=== PATIENT | female | born 1995 | race Two or more races ===

== ENCOUNTER 2016-12-10 23:58 | Inpatient (IN) | payer OTHER, MEDICAID ==
[2016-12-11 00:38] LABS: ADD DIFF? YES; ADD MORPH? NO; ADD SCAN? NO; ATYPICAL LYMPHOCYTE FLAG 20 (0-99); FRAGMENT RBC FLAG 0 (0-99); HEMOGLOBIN 12.7 g/dL (12.6-16.3); LEFT SHIFT FLG 20 (0-99); LIPEMIA HEMOLYSIS FLAG 80 (0-99); MEAN CELL HEMOGLOBIN 28.9 pg (27.9-34.1); MEAN CELL HEMOGLOBIN CONCENTR. 32.6 g/dL (32.4-36.7); MEAN CELL VOLUME 88.8 fL (81.5-99.8); MEAN PLATELET VOLUME 10.2 fL (8.7-11.7); PLATELET CLUMPS FLAG 0 (0-99); PLATELET COUNT 288 10^3/uL (150-400); RED BLOOD CELL COUNT 4.39 10^6/uL (4.18-5.33); RED CELL DISTRIBUTION WIDTH 11.9 % (11.5-15.2)
[2016-12-11 00:39] LABS: ANION GAP 14 mEq/L (8-16); CALCIUM 9.8 mg/dL (8.5-10.4); CARBON DIOXIDE 19 mEq/l (22-31); CHLORIDE 103 mEq/L (97-110); CREATININE 0.7 mg/dL (0.6-1.0); GLOMERULAR FILTRATION RATE > 60; GLUCOSE 125 mg/dL (70-100); POTASSIUM 3.1 mEq/L (3.5-5.2); SODIUM 136 mEq/L (134-144)
[2016-12-11] MEDS ORDERED: ONDANSETRON 4 MG/2 ML VIAL IVP ONE (00:48)
[2016-12-11] MEDS ORDERED: TDAP ADULT 0.5 ML INJ (BOOSTRIX) IM ONE (01:11)
[2016-12-11] MEDS ORDERED: ceFAZolin 1 GM in NS 100 ML IV ONE (01:11)
[2016-12-11] MEDS ORDERED: CEFAZOLIN 1 GM/DEXTROSE/50 ML BAG IV ONE (01:11)
[2016-12-11 01:27] LABS: PLATELET ESTIMATE ADEQUATE (ADEQ)
[2016-12-11] MEDS ORDERED: IOPAMIDOL (ISOVUE-300) 100 ML BTL ONE ×2 (01:36→06:08)
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
[2016-12-11] MEDS ORDERED: NS 1,000 ML IV ONE (01:39)
[2016-12-11] MEDS ORDERED: fentaNYL 100 MCG/2 ML INJ ONE ×3 (02:17→09:32)
[2016-12-11] MEDS ORDERED: fentaNYL 100 MCG/2 ML INJ IVP ONE (02:21)
[2016-12-11] MEDS ORDERED: NALOXONE HCL 0.4 MG/ML INJ IVP PRN ×2 (02:22→17:04)
[2016-12-11] MEDS ORDERED: ONDANSETRON 4 MG/2 ML VIAL IVP PRN ×2 (02:22→17:04)
[2016-12-11] MEDS ORDERED: TRANEXAMIC ACID 1,000 MG/10 ML VIAL ONE (02:31)
[2016-12-11 02:32] LABS: ETHANOL SERUM < 10 mg/dL (0-10)
[2016-12-11] MEDS: FAMOTIDINE 20 MG/NACL 50 ML IV SCH ×3 (03:00→21:40)
[2016-12-11] MEDS ORDERED: KETAMINE 100 MG/10 ML SYR IVP ONE (03:19)
[2016-12-11 03:20] LABS: HEMOGLOBIN 8.8 g/dL (12.6-16.3)
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
[2016-12-11 04:30] LABS: HEMATOCRIT 27.4 % (38.0-47.0)
--- NOTE | 2016-12-11 05:49 | POSTOPPROG ---
Post Op Note Date of Operation: 12/11/16 Surgeon: Jim Victoria Anesthesia: IV Sedation Pre-op Diagnosis: Splenic laceration Post-op Diagnosis: same Indication: hypotension, intraperitoneal hemorrhage Procedure: Splenic arterial embolization Findings: Embolization of mid splenic artery. No active extravasation at this time. Inf/Abcess present in the surg proc area at time of surgery?: No EBL: 50-100 Complications: 0
--- NOTE | 2016-12-11 07:13 | GHP ---
[f rep st] HISTORY AND PHYSICAL DATE OF ADMISSION: 12/11/2016 ADDENDUM (CORRECTIONS): Dictated this morning and I have the draft on the computer but I do not know how to edit it, so starting off it says draft transfer summary. It is not a transfer summary, it is a history and physical. Then there is a blank in the first paragraph where it says age, 31. Then if we can move down to imaging, I would like to make some corrections. In the 2nd and 3rd lines it says, CT chest shows a very tiny left apical pneumothorax. Then let us change the rest of the te xt to this paragraph: Rib fractures on the left 1 through 11 as well as nondisplaced manubrial fract ure, as well as questionable T3 or T4 endplate fractures are noted. On the 4th line in that paragrap h where it says CT abdomen, I would like to add to that sentence to make it say: CT abdomen shows pr obable grade 3 splenic injury, and the radiologist is concerned about some subtle active extravasatio n. Then take out the line that says, no obvious active extravasation please. On the last line of th at paragraph where it says a left pelvic fracture is noted, please change that to: A left pelvic fra cture is noted, left sacral fracture as well, extending into the acetabulum. The very last paragraph under plan, the patient told me her age was, and there is a blank, 21. And roseanna salazar at the very end of this on page 2 under the plan, put addendum: The patient had a transient bloo d pressure of 77 while her scalp was being repaired, and it was felt appropriate to transfuse 2 units of blood, 2 units fresh frozen plasma, and send her to IR for study and embolization of the splenic injury. /[id number]/MODL
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
[2016-12-11] MEDS: LR 1,000 ML IV SCH ×2 (08:04→18:10)
[2016-12-11] MEDS ORDERED: HYDROmorphONE/DILAUDID 1 MG/ML INJ IVP PRN (08:08)
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
[2016-12-11 08:50] LABS: ANION GAP 7 mEq/L (8-16); CALCIUM 7.7 mg/dL (8.5-10.4); CARBON DIOXIDE 21 mEq/l (22-31); CHLORIDE 109 mEq/L (97-110); CREATININE 0.6 mg/dL (0.6-1.0); GLOMERULAR FILTRATION RATE > 60; GLUCOSE 111 mg/dL (70-100); SODIUM 137 mEq/L (134-144)
[2016-12-11] MEDS ORDERED: MIDAZOLAM 2 MG/2 ML VIAL ONE (09:32)
[2016-12-11] MEDS ORDERED: FLUMAZENIL 0.5 MG/5 ML MDV IVP ONE (09:33)
[2016-12-11] MEDS ORDERED: LORazepam 2 MG/ML INJ ONE (09:36)
[2016-12-11 09:37] LABS: INR 1.19 (0.83-1.16); PROTIME(PATIENT) 15.1 SEC (12.0-15.0)
[2016-12-11 09:44] LABS: MEAN CELL HEMOGLOBIN 29.3 pg (27.9-34.1); MEAN CELL HEMOGLOBIN CONCENTR. 32.1 g/dL (32.4-36.7); MEAN CELL VOLUME 91.2 fL (81.5-99.8); RED BLOOD CELL COUNT 3.07 10^6/uL (4.18-5.33)
[2016-12-11] MEDS ORDERED: LORazepam 2 MG/ML INJ IVP ONE (09:53)
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
--- NOTE | 2016-12-11 16:51 | POSTANESTH ---
Post Anesthetic Evaluation Cardiovascular Status: Normal, Stable, Similar to Pre-Op Cond, Tx Hyper/Hypo- tension (pt w/ mild hypotension associated with sympathectomy. Recommend to primary team to treat hypotension with IVF and low dose phenyephrine gtt.) Respiratory Status: Normal, Stable, Similar to Pre-op Cond. Level of Consciousness/Mental Status: Can Participate in Eval, Mildly Sleepy, Arousable Pain Control: Inadeq, Add Tx Required Nausea/Vomiting Control: Adequate, Prn Tx Ordered Complications Possibly Related to Anesthesia: None Noted Notes: S/P thoracic epidural T5-6. Dosed with 5 cc bupi 0.25%, narrow band T4-T8. Will start infusion Bupi 0.1% w dilaudid 10 mcg/ml at 6 cc/hr with patient controlled bolus of 3 cc q 15 min.
[2016-12-11] MEDS ORDERED: NARCOTIC DRIP BAG-TOTAL ALL TYPES EP PRN (17:04)
[2016-12-11] MEDS ORDERED: diphenhydrAMINE 25 MG CAP PO PRN (17:04)
[2016-12-11] MEDS ORDERED: NS BOLUS 500 ML (Wide open) IV ONE (17:30)
[2016-12-11 17:38] LABS: HEMATOCRIT 27.9 % (38.0-47.0); HEMOGLOBIN 9.3 g/dL (12.6-16.3)
[2016-12-11] MEDS: HYDROmorph 10MCG/ML&BUP 0.1% in 100ML NS EP SCH (19:00)
[2016-12-12] MEDS: HYDROmorph 10MCG/ML&BUP 0.1% in 100ML NS EP SCH (02:10)
[2016-12-12 04:40] LABS: HEMATOCRIT 27.3 % (38.0-47.0); HEMOGLOBIN 9.1 g/dL (12.6-16.3); MEAN CELL HEMOGLOBIN 29.9 pg (27.9-34.1); MEAN CELL HEMOGLOBIN CONCENTR. 33.3 g/dL (32.4-36.7); MEAN CELL VOLUME 89.8 fL (81.5-99.8); RED BLOOD CELL COUNT 3.04 10^6/uL (4.18-5.33); RED CELL DISTRIBUTION WIDTH 13.9 % (11.5-15.2)
[2016-12-12 04:51] LABS: ANION GAP 7 mEq/L (8-16); CALCIUM 8.2 mg/dL (8.5-10.4); CARBON DIOXIDE 25 mEq/l (22-31); CHLORIDE 105 mEq/L (97-110); CREATININE 0.5 mg/dL (0.6-1.0); GLOMERULAR FILTRATION RATE > 60; GLUCOSE 83 mg/dL (70-100); POTASSIUM 3.3 mEq/L (3.5-5.2); SODIUM 137 mEq/L (134-144)
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
[2016-12-12] MEDS ORDERED: PROTOCOL POTASSIUM 1 DOSE MISC PRN ×3 (07:31→14:43)
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
[2016-12-12] MEDS: POTASSIUM Cl (KCl) 100 ML IV SCH ×3 (08:22→09:55)
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
[2016-12-12] MEDS: DC NARCS MISC SCH (10:39)
[2016-12-12] MEDS: FAMOTIDINE 20 MG/NACL 50 ML IV SCH ×2 (10:39→20:06)
[2016-12-12] MEDS: REGARDING ANTICOAG MISC SCH (10:39)
[2016-12-12] MEDS ORDERED: POTASSIUM CL 20 MEQ/15 ML UDCUP PO PRN (14:42)
--- NOTE | 2016-12-12 14:50 | POSTANESTH ---
Post Anesthetic Evaluation Cardiovascular Status: Normal, Stable, Similar to Pre-Op Cond Respiratory Status: Normal, Stable, Similar to Pre-op Cond. Level of Consciousness/Mental Status: Can Participate in Eval, Mildly Sleepy, Arousable Pain Control: Adequate, Prn Tx Ordered Nausea/Vomiting Control: Adequate, Prn Tx Ordered Complications Possibly Related to Anesthesia: None Noted Notes: Day #2 s/p thoracic PCEA T5-6. Pt reports good pain control. She has a T3-L1 dermatomal level. No n/v. describes pruritis particularly on her back, relieved with benadryl overnight. Back site is c/d/i, no erythema/edema/ exudate catheter at 10 cm at the skin. Plan: :continue PCEA. Will change to a lower narcotic infusion, bupi 0.1% with fentanyl 2mcg/ml at a rate of 6ml/hr bolus 3 ml, lockout 15 minutes. :Ambulate with assistance as tolerated. :No need to maintain paniagua catheter from our standpoint. :Will add valium 2 mg q6 PO for muscle spasm. :D/W primary team.
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
[2016-12-12] MEDS ORDERED: ONDANSETRON 4 MG/2 ML VIAL IVP PRN (15:18)
[2016-12-12] MEDS ORDERED: NALOXONE HCL 0.4 MG/ML INJ IVP PRN (15:18)
[2016-12-12] MEDS: DIAZEPAM 2 MG TAB PO PRN ×2 (16:00→22:48)
[2016-12-12] MEDS: fentaNYL 2MCG/ML/BUP 0.1% RTU 100 ML EP SCH (16:04)
[2016-12-12] MEDS: LR 1,000 ML IV SCH (20:08)
[2016-12-13] MEDS: fentaNYL 2MCG/ML/BUP 0.1% RTU 100 ML EP SCH ×2 (02:39→23:27)
[2016-12-13] MEDS: DIAZEPAM 2 MG TAB PO PRN ×3 (04:36→19:38)
[2016-12-13 04:44] LABS: HEMATOCRIT 26.8 % (38.0-47.0); HEMOGLOBIN 8.9 g/dL (12.6-16.3); MEAN CELL HEMOGLOBIN 30.2 pg (27.9-34.1); MEAN CELL HEMOGLOBIN CONCENTR. 33.2 g/dL (32.4-36.7); MEAN CELL VOLUME 90.8 fL (81.5-99.8); RED BLOOD CELL COUNT 2.95 10^6/uL (4.18-5.33); RED CELL DISTRIBUTION WIDTH 13.5 % (11.5-15.2)
[2016-12-13 05:07] LABS: ANION GAP 6 mEq/L (8-16); CALCIUM 8.8 mg/dL (8.5-10.4); CARBON DIOXIDE 27 mEq/l (22-31); CHLORIDE 102 mEq/L (97-110); CREATININE 0.6 mg/dL (0.6-1.0); GLOMERULAR FILTRATION RATE > 60; GLUCOSE 87 mg/dL (70-100); POTASSIUM 3.9 mEq/L (3.5-5.2); SODIUM 135 mEq/L (134-144)
[2016-12-13] MEDS ORDERED: POTASSIUM Cl (KCl) 100 ML IV SCH (08:35)
[2016-12-13] MEDS ORDERED: PROTOCOL POTASSIUM 1 DOSE MISC PRN ×2 (08:41→17:24)
[2016-12-13] MEDS ORDERED: POTASSIUM CL 10 MEQ TAB PO ONE ×2 (09:00→19:17)
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
[2016-12-13] MEDS: FAMOTIDINE 20 MG TAB PO SCH ×2 (09:34→20:01)
[2016-12-13] MEDS: DC NARCS MISC SCH (10:12)
[2016-12-13] MEDS: REGARDING ANTICOAG MISC SCH (10:13)
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
[2016-12-13 12:12] LABS: POTASSIUM 3.9 mEq/L (3.5-5.2)
[2016-12-13] MEDS ORDERED: BACITRACIN ZINC 14.2 GM OINTTUBE TP ONE (13:03)
[2016-12-13] MEDS ORDERED: EPINEPHrine 30 MG/30 ML MDV ONE (13:04)
[2016-12-13] MEDS ORDERED: LIDOCAINE 1% 300 MG/30 ML SDV ONE (13:04)
[2016-12-13] MEDS ORDERED: BUPIVACAINE/EPI 0.5% 30 ML SDV ONE (13:04)
[2016-12-13] MEDS ORDERED: MIDAZOLAM 2 MG/2 ML VIAL ONE (14:09)
[2016-12-13] MEDS ORDERED: fentaNYL 100 MCG/2 ML INJ ONE (14:09)
--- NOTE | 2016-12-13 14:13 | PDANEPAE ---
ANE Past Medical History - Cardiovascular History Hx Hypertension: No - Pulmonary History Hx COPD: No Hx Oxygen in Use at Home: No Hx Sleep Apnea: No - Endocrine History Hx Diabetes: No ANE Review of Systems Review of Systems: ANE Patient History - Allergies Allergies/Adverse Reactions: No Known Allergies Allergy (Unverified 12/11/16 00:36) - Home Medications Home Medications: Acetaminophen [Tylenol 325mg (*)] 325 mg PO DAILY PRN 12/11/16 [Last Taken Unknown] Ibuprofen [Motrin (*)] 200 mg PO DAILY PRN 12/11/16 [Last Taken Unknown] - Smoking Hx Smoking Status: Current some day smoker ANE Labs/Vital Signs - Labs Result Diagrams: 12/13/16 04:35 12/13/16 11:50 - Vital Signs Blood Pressure: 104/54 Heart Rate: 59 Respiratory Rate: 14 O2 Sat (%): 100 Height: 160.02 cm Weight: 58.967 kg ANE Physical Exam - Airway Neck exam: C-collar in place Mallampati Score: Unable to assesss - Pulmonary Pulmonary: no respiratory distress - Cardiovascular Cardiovascular: regular rate and rhythym - ASA Status ASA Status: III ANE Anesthesia Plan Total IV Anesthesia: Yes
[2016-12-13] MEDS ORDERED: PROPOFOL 200 MG/20 ML VIAL ONE (14:19)
--- NOTE | 2016-12-13 15:02 | POSTANESTH ---
Post Anesthetic Evaluation Cardiovascular Status: Normal, Stable Respiratory Status: Normal, Stable Level of Consciousness/Mental Status: Can Participate in Eval Pain Control: Adequate, Prn Tx Ordered Nausea/Vomiting Control: Adequate, Prn Tx Ordered Complications Possibly Related to Anesthesia: None Noted
[2016-12-13] MEDS: POTASSIUM Cl (KCl) 100 ML IV SCH ×2 (15:43→17:29)
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
--- NOTE | 2016-12-13 16:41 | ASMTCMCOM ---
CM Note CM Note Notes: Pt to OR today to clean facial wound. Inpt rehab met with pt and her today and will follow up on Friday. CM will continue to follow. Date Signed: 12/13/2016 04:40 PM Electronically Signed By:JOE Bowen
[2016-12-13] MEDS: BACITRACIN OINTMENT 1 PACKET TP SCH ×2 (18:08→21:03)
[2016-12-13 18:15] LABS: POTASSIUM 3.9 mEq/L (3.5-5.2)
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
[2016-12-13] MEDS: LR 1,000 ML IV SCH (21:03)
[2016-12-14] MEDS: LR 1,000 ML IV SCH (04:56)
[2016-12-14] MEDS: DIAZEPAM 2 MG TAB PO PRN ×3 (05:01→17:31)
[2016-12-14] MEDS: BACITRACIN OINTMENT 1 PACKET TP SCH ×5 (05:01→23:54)
[2016-12-14 05:19] LABS: HEMATOCRIT 26.9 % (38.0-47.0); HEMOGLOBIN 8.8 g/dL (12.6-16.3); MEAN CELL HEMOGLOBIN 29.1 pg (27.9-34.1); MEAN CELL HEMOGLOBIN CONCENTR. 32.7 g/dL (32.4-36.7); MEAN CELL VOLUME 89.1 fL (81.5-99.8); RED BLOOD CELL COUNT 3.02 10^6/uL (4.18-5.33)
[2016-12-14 05:57] LABS: ANION GAP 10 mEq/L (8-16); CALCIUM 8.7 mg/dL (8.5-10.4); CARBON DIOXIDE 24 mEq/l (22-31); CHLORIDE 103 mEq/L (97-110); CREATININE 0.4 mg/dL (0.6-1.0); GLOMERULAR FILTRATION RATE > 60; GLUCOSE 88 mg/dL (70-100); POTASSIUM 3.9 mEq/L (3.5-5.2); SODIUM 137 mEq/L (134-144)
[2016-12-14] MEDS ORDERED: PROTOCOL POTASSIUM 1 DOSE MISC PRN (08:50)
[2016-12-14] MEDS ORDERED: POTASSIUM CL 10 MEQ TAB PO ONE (08:51)
[2016-12-14] MEDS: FAMOTIDINE 20 MG TAB PO SCH ×2 (09:22→23:54)
[2016-12-14] MEDS: fentaNYL 2MCG/ML/BUP 0.1% RTU 100 ML EP SCH (09:22)
[2016-12-14] MEDS: REGARDING ANTICOAG MISC SCH (09:55)
[2016-12-14] MEDS: DC NARCS MISC SCH (09:55)
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
[2016-12-14 18:42] LABS: POTASSIUM 3.8 mEq/L (3.5-5.2)
[2016-12-15] MEDS: DIAZEPAM 2 MG TAB PO PRN (01:45)
[2016-12-15] MEDS: fentaNYL 2MCG/ML/BUP 0.1% RTU 100 ML EP SCH ×2 (03:25→15:01)
[2016-12-15 05:10] LABS: HEMATOCRIT 29.7 % (38.0-47.0); HEMOGLOBIN 9.9 g/dL (12.6-16.3); MEAN CELL HEMOGLOBIN 29.6 pg (27.9-34.1); MEAN CELL HEMOGLOBIN CONCENTR. 33.3 g/dL (32.4-36.7); MEAN CELL VOLUME 88.7 fL (81.5-99.8); RED BLOOD CELL COUNT 3.35 10^6/uL (4.18-5.33); RED CELL DISTRIBUTION WIDTH 12.9 % (11.5-15.2)
[2016-12-15 05:17] LABS: POTASSIUM 3.9 mEq/L (3.5-5.2)
[2016-12-15] MEDS ORDERED: HEPARIN 20,000 UNIT/ML VIAL SC SCH (06:30)
[2016-12-15] MEDS: BACITRACIN OINTMENT 1 PACKET TP SCH ×5 (06:32→20:30)
[2016-12-15] MEDS ORDERED: POTASSIUM CL 10 MEQ TAB PO ONE (09:13)
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
[2016-12-15] MEDS: FAMOTIDINE 20 MG TAB PO SCH ×2 (09:21→20:30)
[2016-12-15] MEDS: ACETAMINOPHEN 325 MG TAB PO PRN ×2 (09:22→18:29)
[2016-12-15] MEDS: HEPARIN 5,000 UNIT/0.5 ML SYR SC SCH ×4 (09:26→23:46)
[2016-12-15] MEDS: DC NARCS MISC SCH (10:28)
[2016-12-15] MEDS: DIAZEPAM 5 MG TAB PO PRN ×2 (12:14→18:28)
--- NOTE | 2016-12-15 14:53 | ASMTCMCOM ---
CM Note CM Note Notes: Therapies recommending HC, patient and seem to think HC would be a good idea. Patient has Medicaid ins and lives in [facility]. Date Signed: 12/15/2016 02:53 PM Electronically Signed By:Milagros Boyd LCSW
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
[2016-12-15 18:21] LABS: POTASSIUM 4.3 mEq/L (3.5-5.2)
[2016-12-15] MEDS ORDERED: ZOLPIDEM TARTRATE 5 MG TAB PO ONE (23:26)
[2016-12-16] MEDS: ACETAMINOPHEN 325 MG TAB PO PRN (02:56)
[2016-12-16] MEDS: DIAZEPAM 5 MG TAB PO PRN ×2 (02:57→15:18)
[2016-12-16 04:25] LABS: HEMATOCRIT 30.6 % (38.0-47.0); HEMOGLOBIN 10.2 g/dL (12.6-16.3); MEAN CELL HEMOGLOBIN 29.6 pg (27.9-34.1); MEAN CELL HEMOGLOBIN CONCENTR. 33.3 g/dL (32.4-36.7); MEAN CELL VOLUME 88.7 fL (81.5-99.8); RED BLOOD CELL COUNT 3.45 10^6/uL (4.18-5.33); RED CELL DISTRIBUTION WIDTH 12.9 % (11.5-15.2)
[2016-12-16] MEDS: fentaNYL 2MCG/ML/BUP 0.1% RTU 100 ML EP SCH ×2 (04:26→15:40)
[2016-12-16 04:34] LABS: POTASSIUM 3.9 mEq/L (3.5-5.2)
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
[2016-12-16] MEDS: BACITRACIN OINTMENT 1 PACKET TP SCH ×5 (06:15→21:22)
[2016-12-16] MEDS ORDERED: POTASSIUM CL 10 MEQ TAB PO ONE (08:03)
[2016-12-16] MEDS ORDERED: BUPIVACAINE/EPI 0.5% 30 ML SDV ONE (09:49)
[2016-12-16] MEDS ORDERED: LIDOCAINE 1% 300 MG/30 ML SDV ONE (09:49)
[2016-12-16] MEDS ORDERED: BACITRACIN 50,000 UNITS/10 ML SYR IRR ONE (09:50)
[2016-12-16] MEDS: HEPARIN 5,000 UNIT/0.5 ML SYR SC SCH ×2 (09:51→21:22)
[2016-12-16] MEDS: FAMOTIDINE 20 MG TAB PO SCH ×2 (09:52→21:22)
[2016-12-16] MEDS ORDERED: BACITRACIN ZINC 14.2 GM OINTTUBE TP ONE (09:52)
[2016-12-16] MEDS ORDERED: POLYMYXIN B SULFATE 500,000 UNIT/10 ML SYR IRR ONE (09:52)
[2016-12-16] MEDS: DC NARCS MISC SCH (10:00)
[2016-12-16] MEDS ORDERED: BUPIVACAINE 0.5% 30 ML SDV ONE (12:12)
[2016-12-16] MEDS ORDERED: LR 1,000 ML IV ONE ×2 (12:21→13:46)
[2016-12-16] MEDS ORDERED: fentaNYL 100 MCG/2 ML INJ ONE ×3 (12:33→13:31)
[2016-12-16] MEDS ORDERED: PROPOFOL 200 MG/20 ML VIAL ONE (12:35)
[2016-12-16] MEDS ORDERED: ROPIVACAINE HCL 150 MG/30 ML INJ ONE (13:02)
--- NOTE | 2016-12-16 13:04 | POSTOPPROG ---
Post Op Note Date of Operation: 12/16/16 Surgeon: Kendall Jenkins Haunted History Tour Guide: none Pre-op Diagnosis: left pleural effusion Post-op Diagnosis: same Procedure: Left closed tube thoracostomy tube insertion Findings: serous fluid Inf/Abcess present in the surg proc area at time of surgery?: No Depth: Organ Space EBL: Minimal Specimen(s): none
[2016-12-16] MEDS ORDERED: NALOXONE HCL 0.4 MG/ML INJ IVP PRN (13:19)
[2016-12-16] MEDS ORDERED: PROMETHAZINE HCL 25 MG/ML INJ IVP PRN (13:19)
[2016-12-16] MEDS ORDERED: LR 500 ML IV PRN (13:19)
[2016-12-16] MEDS: fentaNYL 100 MCG/2 ML INJ IVP PRN ×2 (13:33→14:03)
[2016-12-16] MEDS ORDERED: LORazepam 2 MG/ML INJ IVP ONE (16:15)
[2016-12-16 18:51] LABS: POTASSIUM 4.4 mEq/L (3.5-5.2)
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
[2016-12-17] MEDS: fentaNYL 2MCG/ML/BUP 0.1% RTU 100 ML EP SCH ×2 (01:40→10:37)
[2016-12-17] MEDS: DIAZEPAM 5 MG TAB PO PRN (04:34)
[2016-12-17] MEDS: BACITRACIN OINTMENT 1 PACKET TP SCH ×5 (06:17→22:07)
[2016-12-17] MEDS ORDERED: CEPACOL LOZENGE PO PRN (07:32)
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
[2016-12-17] MEDS: HEPARIN 5,000 UNIT/0.5 ML SYR SC SCH ×2 (10:21→22:07)
[2016-12-17] MEDS: ACETAMINOPHEN 325 MG TAB PO PRN ×2 (10:22→17:16)
[2016-12-17] MEDS: FAMOTIDINE 20 MG TAB PO SCH ×2 (10:22→22:07)
[2016-12-17] MEDS: DC NARCS MISC SCH (11:03)
[2016-12-17 11:09] LABS: HEMATOCRIT 32.3 % (38.0-47.0); HEMOGLOBIN 10.8 g/dL (12.6-16.3); MEAN CELL HEMOGLOBIN 29.6 pg (27.9-34.1); MEAN CELL HEMOGLOBIN CONCENTR. 33.4 g/dL (32.4-36.7); MEAN CELL VOLUME 88.5 fL (81.5-99.8); RED BLOOD CELL COUNT 3.65 10^6/uL (4.18-5.33); RED CELL DISTRIBUTION WIDTH 12.7 % (11.5-15.2)
[2016-12-17 11:33] LABS: POTASSIUM 4.1 mEq/L (3.5-5.2)
[2016-12-17] MEDS: LR 1,000 ML IV SCH ×2 (12:23→22:16)
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
[2016-12-17 18:51] LABS: POTASSIUM 4.3 mEq/L (3.5-5.2)
[2016-12-18 05:34] LABS: POTASSIUM 4.4 mEq/L (3.5-5.2)
[2016-12-18] MEDS ORDERED: oxyCODONE IR 5 MG TAB PO PRN ×2 (06:00)
[2016-12-18] MEDS: ACETAMINOPHEN 325 MG TAB PO PRN ×2 (07:18→21:09)
[2016-12-18] MEDS: BACITRACIN OINTMENT 1 PACKET TP SCH ×5 (07:18→21:29)
[2016-12-18] MEDS ORDERED: MAGNESIUM HYDROXIDE 30 ML UDCUP PO PRN (07:26)
[2016-12-18] MEDS ORDERED: LACTULOSE 20 GM/30 ML UDCUP PO PRN (07:26)
[2016-12-18] MEDS ORDERED: POLYETHYLENE GLYCOL 3350 17 GM PKT PO PRN (07:26)
[2016-12-18] MEDS ORDERED: HYDROmorphONE/DILAUDID 1 MG/ML INJ IVP PRN (07:26)
[2016-12-18] MEDS ORDERED: BISACODYL 10 MG SUPP PR PRN (07:26)
[2016-12-18] MEDS ORDERED: KETOROLAC 15 MG/1 ML SDV IVP ONE (07:37)
[2016-12-18] MEDS: SENNOSIDES/DOCUSATE SODIUM TAB PO SCH ×2 (08:12→21:08)
[2016-12-18] MEDS: morphINE SR 15 MG TAB PO SCH ×3 (08:12→21:10)
[2016-12-18] MEDS: oxyCODONE IR 5 MG TAB PO PRN ×5 (09:14→21:09)
[2016-12-18] MEDS: LIDOCAINE 5% 1 EA PATCH TD SCH (09:21)
[2016-12-18] MEDS: DC NARCS MISC SCH (10:42)
[2016-12-18] MEDS: DIAZEPAM 5 MG TAB PO PRN ×2 (12:19→21:10)
[2016-12-18] MEDS: FAMOTIDINE 20 MG TAB PO SCH ×2 (12:31→21:09)
--- NOTE | 2016-12-18 14:08 | POSTANESTH ---
Post Anesthetic Evaluation Cardiovascular Status: Normal, Stable, Similar to Pre-Op Cond Respiratory Status: Normal, Stable, Similar to Pre-op Cond. Level of Consciousness/Mental Status: Can Participate in Eval, Alert and Oriented Pain Control: Adequate, Prn Tx Ordered Nausea/Vomiting Control: Adequate, Prn Tx Ordered Complications Possibly Related to Anesthesia: None Noted Notes: Epidural removed, tip intact, atraumatic. Thank you for this interesting consult- don't hesitate to call with any further questions or concerns.
--- NOTE | 2016-12-18 14:27 | ASMTCMCOM ---
CM Note CM Note Notes: Updated Ashlyn Wells at [facility] inpat rehab pt [employer] insurance is effective 12/15/16, she will start the ins auth. Date Signed: 12/18/2016 02:27 PM Electronically Signed By:JOE Dobbins
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
[2016-12-18] MEDS ORDERED: NALOXONE HCL 0.4 MG/ML INJ IVP PRN (17:43)
[2016-12-18] MEDS ORDERED: morphINE PCA 30 MG/30 ML PCA IV PRN (17:43)
[2016-12-18] MEDS: LORazepam 2 MG/ML INJ IVP PRN ×2 (18:53→23:24)
[2016-12-18] MEDS: PATCH REMOVAL 1 EA PATCH TD SCH (21:29)
[2016-12-19] MEDS: oxyCODONE IR 5 MG TAB PO PRN ×5 (02:49→23:21)
[2016-12-19] MEDS: ACETAMINOPHEN 325 MG TAB PO PRN ×3 (02:49→17:54)
[2016-12-19] MEDS: DIAZEPAM 5 MG TAB PO PRN ×3 (02:49→21:46)
[2016-12-19] MEDS: LORazepam 2 MG/ML INJ IVP PRN (06:46)
[2016-12-19] MEDS: BACITRACIN OINTMENT 1 PACKET TP SCH ×5 (07:02→21:43)
[2016-12-19] MEDS: SENNOSIDES/DOCUSATE SODIUM TAB PO SCH ×2 (08:17→22:00)
[2016-12-19] MEDS: LIDOCAINE 5% 1 EA PATCH TD SCH (08:18)
[2016-12-19] MEDS: morphINE SR 15 MG TAB PO SCH ×2 (08:20→21:46)
[2016-12-19] MEDS: FAMOTIDINE 20 MG TAB PO SCH ×2 (08:20→21:46)
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
[2016-12-19] MEDS: PATCH REMOVAL 1 EA PATCH TD SCH (22:00)
[2016-12-20] MEDS: ACETAMINOPHEN 325 MG TAB PO PRN ×2 (02:52→12:53)
[2016-12-20] MEDS: oxyCODONE IR 5 MG TAB PO PRN ×6 (02:54→22:01)
[2016-12-20] MEDS: BACITRACIN OINTMENT 1 PACKET TP SCH ×5 (06:18→20:51)
[2016-12-20] MEDS: morphINE SR 15 MG TAB PO SCH ×2 (09:17→20:51)
[2016-12-20] MEDS: SENNOSIDES/DOCUSATE SODIUM TAB PO SCH ×2 (09:17→23:07)
[2016-12-20] MEDS: FAMOTIDINE 20 MG TAB PO SCH ×2 (09:17→20:50)
[2016-12-20] MEDS: LIDOCAINE 5% 1 EA PATCH TD SCH (09:18)
[2016-12-20] MEDS: ENOXAPARIN 40 MG/0.4 ML SYR SC SCH (10:58)
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
--- NOTE | 2016-12-20 16:39 | ASMTCMCOM ---
CM Note CM Note Notes: Pt still on GENERAL INTERNAL MEDICINE DOCTOR, RN Denice is slowly transitioning pt to oral pain meds. If pt medically stable and on oral pain meds she can d/c to [facility] inpatient rehab Friday. Late today [place] insurance authorized inpatient rehab. [facility] inpatient rehab needs orders faxed to [phone] and report is [phone]. Date Signed: 12/20/2016 04:38 PM Electronically Signed By:JOE Dobbins
[2016-12-20] MEDS: DIAZEPAM 5 MG TAB PO PRN (22:04)
[2016-12-20] MEDS: PATCH REMOVAL 1 EA PATCH TD SCH (22:08)
[2016-12-21] MEDS: oxyCODONE IR 5 MG TAB PO PRN ×7 (01:13→23:50)
[2016-12-21] MEDS: BACITRACIN OINTMENT 1 PACKET TP SCH ×5 (05:27→20:15)
[2016-12-21] MEDS: ENOXAPARIN 40 MG/0.4 ML SYR SC SCH (08:36)
[2016-12-21] MEDS: FAMOTIDINE 20 MG TAB PO SCH ×2 (08:37→20:10)
[2016-12-21] MEDS: LIDOCAINE 5% 1 EA PATCH TD SCH (08:37)
[2016-12-21] MEDS: SENNOSIDES/DOCUSATE SODIUM TAB PO SCH ×2 (08:38→20:10)
[2016-12-21] MEDS: morphINE SR 15 MG TAB PO SCH ×2 (08:38→20:10)
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
[2016-12-21] MEDS: IBUPROFEN 800 MG TAB PO SCH ×2 (13:49→21:59)
[2016-12-21] MEDS: DIAZEPAM 5 MG TAB PO PRN (22:00)
[2016-12-21] MEDS: PATCH REMOVAL 1 EA PATCH TD SCH (22:02)
[2016-12-22] MEDS: LORazepam 2 MG/ML INJ IVP PRN (01:11)
--- NOTE | 2016-12-22 01:33 | TRAUMAPN ---
Assessment/Plan: Assessment: enlarging PTX after CT removed earlier today on serial CXR. patient also complained of increasing left side chest pain throughout eyad. a new percutaneous tube was placed without difficulty. CXR pending. no overnight events. pain controlled. avss. CT adynamic, 50cc old blood only. heart reg. lungs clear. abd nontender. slow progress. CT removed - repeat CXR. DC planning in progress. Plan: 12/21/16 09:55 Objective: Vital Signs Temp Pulse Resp BP Pulse Ox 36.5 C 71 16 107/65 91 L 12/21/16 23:56 12/21/16 23:56 12/21/16 23:56 12/21/16 23:56 12/21/16 23:56 Laboratory Results 12/17/16 11:03 12/18/16 04:24 12/20/16 12/21/16 12/22/16 05:59 05:59 05:59 Intake Total 2100 550 Output Total 50 Balance 2100 500 PT 15.1 SEC (12.0-15.0) H 12/11/16 09:20 INR 1.19 (0.83-1.16) H 12/11/16 09:20 - C-Spine Clearance Cervical Spine Cleared: No
--- NOTE | 2016-12-22 04:32 | GOP ---
[f rep st] OPERATIVE REPORT DATE OF OPERATION: 12/22/2016 SURGEON: Miguel Ayala MD ANESTHESIA: Local. PREOPERATIVE DIAGNOSIS: Enlarged left pneumothorax. POSTOPERATIVE DIAGNOSIS: Enlarged left pneumothorax. PROCEDURE PERFORMED: Left percutaneous tube thoracostomy. FINDINGS: DESCRIPTION OF PROCEDURE: The left chest was infiltrated with 1% lidocaine. A small skin judit was c reated. The Arrow percutaneous tube thoracostomy tray was placed in the thoracic cavity in the midcl avicular line, approximately 2nd intercostal space. Bubbling was noted within the syringe. The cath eter slid to its hub easily without resistance. There was good rhythmical respiration upon it connec ting to the Heimlich valve mechanism. The tube was secured to the chest with a silk suture. Sterile dressing was applied. A portable chest x-ray was pending upon completion. /[id number]/MODL
[2016-12-22] MEDS: oxyCODONE IR 5 MG TAB PO PRN ×6 (04:36→21:25)
[2016-12-22] MEDS: IBUPROFEN 800 MG TAB PO SCH ×3 (05:20→21:26)
[2016-12-22] MEDS: BACITRACIN OINTMENT 1 PACKET TP SCH ×5 (05:21→21:31)
[2016-12-22] MEDS: morphINE SR 15 MG TAB PO SCH ×2 (08:19→21:26)
[2016-12-22] MEDS: FAMOTIDINE 20 MG TAB PO SCH ×2 (08:19→21:25)
[2016-12-22] MEDS: ENOXAPARIN 40 MG/0.4 ML SYR SC SCH (08:19)
[2016-12-22] MEDS: LIDOCAINE 5% 1 EA PATCH TD SCH (08:20)
[2016-12-22] MEDS: SENNOSIDES/DOCUSATE SODIUM TAB PO SCH ×2 (09:07→21:26)
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
[2016-12-22] MEDS: ACETAMINOPHEN 325 MG TAB PO PRN (21:25)
[2016-12-22] MEDS: DIAZEPAM 5 MG TAB PO PRN (21:26)
[2016-12-23] MEDS: PATCH REMOVAL 1 EA PATCH TD SCH ×2 (00:10→22:54)
[2016-12-23] MEDS: oxyCODONE IR 5 MG TAB PO PRN ×4 (00:24→22:53)
[2016-12-23] MEDS: IBUPROFEN 800 MG TAB PO SCH ×3 (05:11→22:52)
[2016-12-23] MEDS: BACITRACIN OINTMENT 1 PACKET TP SCH ×5 (05:14→22:55)
[2016-12-23] MEDS: ACETAMINOPHEN 325 MG TAB PO PRN ×3 (05:14→23:48)
[2016-12-23 08:28] LABS: % IMMATURE GRANULYOCYTES 1.1 % (0.0-1.1); ABSOLUTE IMMATURE GRANULOCYTES 0.07 10^3/uL (0.00-0.10); ADD DIFF? NO; ADD MORPH? NO; ADD SCAN? NO; ATYPICAL LYMPHOCYTE FLAG 40 (0-99); FRAGMENT RBC FLAG 0 (0-99); HEMATOCRIT 28.8 % (38.0-47.0); HEMOGLOBIN 9.1 g/dL (12.6-16.3); LEFT SHIFT FLG 10 (0-99); LIPEMIA HEMOLYSIS FLAG 80 (0-99); MEAN CELL HEMOGLOBIN 28.6 pg (27.9-34.1); MEAN CELL HEMOGLOBIN CONCENTR. 31.6 g/dL (32.4-36.7); MEAN CELL VOLUME 90.6 fL (81.5-99.8); MEAN PLATELET VOLUME 9.2 fL (8.7-11.7); PLATELET CLUMPS FLAG 10 (0-99); PLATELET COUNT 475 10^3/uL (150-400); RED BLOOD CELL COUNT 3.18 10^6/uL (4.18-5.33); RED CELL DISTRIBUTION WIDTH 13.1 % (11.5-15.2)
[2016-12-23 08:43] LABS: ALANINE AMINOTRANSFERASE 45 IU/L (9-52); ALBUMIN 2.9 g/dL (3.5-5.0); ALKALINE PHOSPHATASE 97 IU/L (38-126); AMYLASE 46 IU/L (30-110); ANION GAP 7 mEq/L (8-16); ASPARTATE AMINOTRANSFERASE 26 IU/L (14-46); BILIRUBIN,TOTAL 0.4 mg/dL (0.1-1.4); BILIRUBIN-CONJUGATED 0.2 mg/dL (0.0-0.5); BILIRUBIN-UNCONJUGATED 0.2 mg/dL (0.0-1.1); CALCIUM 9.4 mg/dL (8.5-10.4); CARBON DIOXIDE 27 mEq/l (22-31); CHLORIDE 104 mEq/L (97-110); CREATININE 0.7 mg/dL (0.6-1.0); GLOMERULAR FILTRATION RATE > 60; GLUCOSE 93 mg/dL (70-100); POTASSIUM 4.3 mEq/L (3.5-5.2); SODIUM 138 mEq/L (134-144); TOTAL PROTEIN 5.9 g/dL (6.3-8.2)
[2016-12-23] MEDS: ENOXAPARIN 40 MG/0.4 ML SYR SC SCH (09:37)
[2016-12-23] MEDS: SENNOSIDES/DOCUSATE SODIUM TAB PO SCH ×2 (09:37→22:55)
[2016-12-23] MEDS: LIDOCAINE 5% 1 EA PATCH TD SCH (09:38)
[2016-12-23] MEDS: morphINE SR 15 MG TAB PO SCH ×2 (09:39→22:53)
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
[2016-12-23] MEDS: FAMOTIDINE 20 MG TAB PO SCH ×2 (13:52→22:52)
--- NOTE | 2016-12-23 15:11 | ASMTCMCOM ---
CM Note CM Note Notes: Spoke w pt at length about d/c plan of care, pt adamant today she wants to d/c home and not [facility] inpat rehab. Trauma doc updated, pt is not medically stable for a d/c home today. CM to follow. Date Signed: 12/23/2016 03:10 PM Electronically Signed By:JOE Dobbins
--- NOTE | 2016-12-23 16:29 | ASMTCMCOM ---
CM Note CM Note Notes: Pt changes her mind this afternoon and wants to go to [facility] intnt rehab, Ashlyn Wells notified and it is too late in day to take pt, they can take pt tomorrow but no later. Pt will decide if she wants friends/family to transport or wc van. Date Signed: 12/23/2016 04:28 PM Electronically Signed By:JOE Dobbins
[2016-12-23] MEDS: DIAZEPAM 5 MG TAB PO PRN (22:52)
[2016-12-24] MEDS: oxyCODONE IR 5 MG TAB PO PRN ×3 (02:01→17:26)
[2016-12-24] MEDS: IBUPROFEN 800 MG TAB PO SCH ×3 (05:32→22:21)
[2016-12-24] MEDS: ACETAMINOPHEN 325 MG TAB PO PRN (05:32)
[2016-12-24] MEDS: BACITRACIN OINTMENT 1 PACKET TP SCH ×5 (06:47→20:01)
[2016-12-24] MEDS: LIDOCAINE 5% 1 EA PATCH TD SCH (09:28)
[2016-12-24] MEDS: morphINE SR 15 MG TAB PO SCH ×2 (09:28→20:02)
[2016-12-24] MEDS: FAMOTIDINE 20 MG TAB PO SCH ×2 (09:28→20:02)
[2016-12-24] MEDS: ENOXAPARIN 40 MG/0.4 ML SYR SC SCH (09:28)
[2016-12-24] MEDS: SENNOSIDES/DOCUSATE SODIUM TAB PO SCH ×2 (09:28→20:02)
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
[2016-12-24] MEDS: DIAZEPAM 5 MG TAB PO PRN (22:21)
[2016-12-24] MEDS: PATCH REMOVAL 1 EA PATCH TD SCH (23:18)
[2016-12-25 00:02] VITALS: O2SAT 96
[2016-12-25] MEDS: IBUPROFEN 800 MG TAB PO SCH ×2 (05:40→14:36)
[2016-12-25] MEDS: BACITRACIN OINTMENT 1 PACKET TP SCH ×3 (06:03→13:59)
[2016-12-25 08:09] VITALS: BP 111/56; PULSE 49; RESP 20; TEMP 98.2
--- NOTE | 2016-12-25 08:13 | PDCONSULT ---
Super[employer] Note: Trauma Surgery/post injury day 15 Isaura is awake and alert/somewhat tearful this morning AFVSS Lungs: clear to ausc. CVS: RRR Abd: soft/non-tender ext: distal N/V intact CXR past 3 days reviewed/minimal apical left pneumo (2mm)vs. artifact CT removed Imp: stable for transfer to Rehab from Trauma Surgery viewpoint Rec: will check post CT removal CXR transfer to Rehab when bed available Orestes Vanegas MD, FACS
[2016-12-25] MEDS: FAMOTIDINE 20 MG TAB PO SCH (10:01)
[2016-12-25] MEDS: SENNOSIDES/DOCUSATE SODIUM TAB PO SCH (10:01)
[2016-12-25] MEDS: ENOXAPARIN 40 MG/0.4 ML SYR SC SCH (10:01)
[2016-12-25] MEDS: morphINE SR 15 MG TAB PO SCH (10:01)
[2016-12-25] MEDS: LIDOCAINE 5% 1 EA PATCH TD SCH (10:02)
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
--- NOTE | 2016-12-25 10:43 | PDDCSUM ---
Discharge Summary Discharge Summary: #[id number] SAMARIA Vanegas MD, FACS
--- NOTE | 2016-12-25 11:45 | ASMTCMCOM ---
CM Note CM Note Notes: Pt medically stable for d/c to [facility] inpatient rehabilitation. Pt requests wc transport as family is unavail, spoke w pt and husb about payment, they are aware and Mak Astorga will pickup at 14:30 and bill pt. Orders to be obtained in [employer]. SHARMILA Mejia to call report. Date Signed: 12/25/2016 11:45 AM Electronically Signed By:JOE Dobbins
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
[2016-12-25] MEDS: ACETAMINOPHEN 325 MG TAB PO PRN (14:37)
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
== END 2016-12-25 14:47 | DRG 958 ==
LOC: EDBD 23:58 → OBSVTOIN 12-11 01:57 → F2N 12-11 05:06 → F3N 12-14 15:37
PROVIDERS: ADMIT Surgery; ATTEND Surgery
PROC: 04L43DZ Occlusion of Splenic Artery with Intraluminal Device, Percutaneous Approach (ICD-10-PCS; principal; 2016-12-11)
PROC: 3E0S3NZ Introduction of Analgesics, Hypnotics, Sedatives into Epidural Space, Percutaneous Approach (ICD-10-PCS; 2016-12-11)
PROC: 30233K1 Transfusion of Nonautologous Frozen Plasma into Peripheral Vein, Percutaneous Approach (ICD-10-PCS; 2016-12-11)
PROC: 0HC1XZZ Extirpation of Matter from Face Skin, External Approach (ICD-10-PCS; 2016-12-11)
PROC: 30233N1 Transfusion of Nonautologous Red Blood Cells into Peripheral Vein, Percutaneous Approach (ICD-10-PCS; 2016-12-11)
PROC: 0HC1XZZ Extirpation of Matter from Face Skin, External Approach (ICD-10-PCS; 2016-12-13)
PROC: 0W9830Z Drainage of Chest Wall with Drainage Device, Percutaneous Approach (ICD-10-PCS; 2016-12-16)
PROC: 0W9830Z Drainage of Chest Wall with Drainage Device, Percutaneous Approach (ICD-10-PCS; 2016-12-22)
DX: S36.032A Major laceration of spleen, initial encounter (principal); S36.114A Minor laceration of liver, initial encounter; S32.120A Nondisplaced Zone II fracture of sacrum, initial encounter for closed fracture; S32.402A Unspecified fracture of left acetabulum, initial encounter for closed fracture; S22.42XA Multiple fractures of ribs, left side, initial encounter for closed fracture; S01.02XA Laceration with foreign body of scalp, initial encounter; S01.81XA Laceration without foreign body of other part of head, initial encounter; K56.7 Ileus, unspecified; D62 Acute posthemorrhagic anemia; S22.039A Unspecified fracture of third thoracic vertebra, initial encounter for closed fracture; S22.029A Unspecified fracture of second thoracic vertebra, initial encounter for closed fracture; I95.2 Hypotension due to drugs; T40.2X5A Adverse effect of other opioids, initial encounter; S06.6X9A Traumatic subarachnoid hemorrhage with loss of consciousness of unspecified duration, initial encounter; R40.2412 Glasgow coma scale score 13-15, at arrival to emergency department; F17.210 Nicotine dependence, cigarettes, uncomplicated; S27.0XXA Traumatic pneumothorax, initial encounter; S36.892A Contusion of other intra-abdominal organs, initial encounter; V43.52XA Car driver injured in collision with other type car in traffic accident, initial encounter; Y92.413 State road as the place of occurrence of the external cause
CPT/HCPCS: 92507-GN; 92523-GN; 92610-GN; 96374; 97110-GP; 97116-GP; 97163-GP; 97167-GO; 97530-GO; 97530-GP; 97532-GO; 97535-GO; C1769; C1892; C1894; G0480; J0690; J1170; J1200; J1644; J1650; J1885; J2060; J2250; J2270; J2310; J2405; J2704; J2795; J3010; P9016; P9017; P9021; Q9967

== ENCOUNTER 2016-12-19 09:18 | Inpatient (IN) | payer OTHER, MEDICAID ==
[2016-12-25] MEDS ORDERED: DIAZEPAM 5 MG TAB PO PRN (17:34)
[2016-12-25] MEDS ORDERED: CEPACOL LOZENGE PO PRN (17:34)
[2016-12-25] MEDS ORDERED: NALOXONE HCL 0.4 MG/ML INJ IVP PRN (17:34)
[2016-12-25] MEDS ORDERED: POLYETHYLENE GLYCOL 3350 17 GM PKT PO PRN (17:34)
--- NOTE | 2016-12-25 18:00 | PDOREHIP ---
Admission [facility] - Admission - 3 Day Assessment Period Admission Date/Day 1: 12/25/16 Day 2: 12/26/16 Day 3: 12/27/16 - Active Diagnoses Comorbidities and Co-existing Conditions at Admission: [id number]. None of the Above - Skin Conditions Unhealed Pressure Ulcer (1 or more/Stage 1 or >)-Admission: 0. No
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
[2016-12-25] MEDS: BACITRACIN OINTMENT 1 PACKET TP SCH ×2 (18:48→22:20)
[2016-12-25] MEDS: oxyCODONE IR 5 MG TAB PO PRN (19:49)
[2016-12-25] MEDS: SENNOSIDES/DOCUSATE SODIUM TAB PO SCH (21:37)
[2016-12-25] MEDS: FAMOTIDINE 20 MG TAB PO SCH (21:37)
[2016-12-25] MEDS: morphINE SR 15 MG TAB PO SCH (21:37)
[2016-12-25] MEDS: PATCH REMOVAL 1 EA PATCH TD SCH (21:47)
[2016-12-25] MEDS: IBUPROFEN 800 MG TAB PO SCH (22:20)
[2016-12-26] MEDS: oxyCODONE IR 5 MG TAB PO PRN ×2 (01:56→12:13)
[2016-12-26] MEDS: BACITRACIN OINTMENT 1 PACKET TP SCH ×5 (06:33→21:46)
[2016-12-26] MEDS: IBUPROFEN 800 MG TAB PO SCH (06:33)
[2016-12-26 07:58] LABS: % IMMATURE GRANULYOCYTES 0.8 % (0.0-1.1); ABSOLUTE IMMATURE GRANULOCYTES 0.06 10^3/uL (0.00-0.10); ADD DIFF? NO; ADD MORPH? NO; ADD SCAN? NO; ATYPICAL LYMPHOCYTE FLAG 20 (0-99); FRAGMENT RBC FLAG 0 (0-99); HEMATOCRIT 31.5 % (38.0-47.0); HEMOGLOBIN 10.3 g/dL (12.6-16.3); LEFT SHIFT FLG 0 (0-99); LIPEMIA HEMOLYSIS FLAG 80 (0-99); MEAN CELL HEMOGLOBIN 29.2 pg (27.9-34.1); MEAN CELL HEMOGLOBIN CONCENTR. 32.7 g/dL (32.4-36.7); MEAN CELL VOLUME 89.2 fL (81.5-99.8); MEAN PLATELET VOLUME 9.3 fL (8.7-11.7); PLATELET CLUMPS FLAG 10 (0-99); PLATELET COUNT 501 10^3/uL (150-400); RED BLOOD CELL COUNT 3.53 10^6/uL (4.18-5.33); RED CELL DISTRIBUTION WIDTH 13.3 % (11.5-15.2)
[2016-12-26] MEDS: SENNOSIDES/DOCUSATE SODIUM TAB PO SCH ×3 (08:21→21:46)
[2016-12-26] MEDS: FAMOTIDINE 20 MG TAB PO SCH ×2 (08:21→21:22)
[2016-12-26] MEDS: morphINE SR 15 MG TAB PO SCH ×2 (08:21→21:22)
[2016-12-26] MEDS: LIDOCAINE 5% 1 EA PATCH TD SCH (08:23)
[2016-12-26 08:27] LABS: ANION GAP 9 mEq/L (8-16); CALCIUM 9.8 mg/dL (8.5-10.4); CARBON DIOXIDE 24 mEq/l (22-31); CHLORIDE 106 mEq/L (97-110); CREATININE 0.6 mg/dL (0.6-1.0); GLOMERULAR FILTRATION RATE > 60; GLUCOSE 80 mg/dL (70-100); SODIUM 139 mEq/L (134-144)
[2016-12-26] MEDS ORDERED: MAGNESIUM HYDROXIDE 30 ML UDCUP PO ONE (10:07)
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
[2016-12-26] MEDS: ACETAMINOPHEN 325 MG TAB PO PRN ×2 (12:15→18:07)
[2016-12-26] MEDS: ENOXAPARIN 40 MG/0.4 ML SYR SC SCH (12:16)
[2016-12-26] MEDS: PATCH REMOVAL 1 EA PATCH TD SCH (21:24)
[2016-12-27] MEDS: oxyCODONE IR 5 MG TAB PO PRN ×2 (06:09→12:13)
[2016-12-27] MEDS: BACITRACIN OINTMENT 1 PACKET TP SCH ×5 (06:31→22:06)
[2016-12-27 07:19] LABS: % SATURATION 15 % (20-55); TOTAL IRON BINDING CAPACITY 367 ug/dL (260-490)
[2016-12-27] MEDS ORDERED: POLYETHYLENE GLYCOL 3350 17 GM PKT PO SCH (09:00)
[2016-12-27] MEDS: ENOXAPARIN 40 MG/0.4 ML SYR SC SCH (09:20)
[2016-12-27] MEDS: morphINE SR 15 MG TAB PO SCH ×2 (09:21→21:59)
[2016-12-27] MEDS: LIDOCAINE 5% 1 EA PATCH TD SCH (09:21)
[2016-12-27] MEDS: FAMOTIDINE 20 MG TAB PO SCH (09:21)
[2016-12-27] MEDS: SENNOSIDES/DOCUSATE SODIUM TAB PO SCH ×2 (09:21→21:59)
[2016-12-27] MEDS: ACETAMINOPHEN 325 MG TAB PO PRN (12:14)
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
[2016-12-27] MEDS: POLYETHYLENE GLYCOL 3350 17 GM PKT PO SCH (17:18)
[2016-12-27] MEDS: PATCH REMOVAL 1 EA PATCH TD SCH (22:05)
[2016-12-28] MEDS: oxyCODONE IR 5 MG TAB PO PRN ×4 (05:23→20:53)
[2016-12-28] MEDS: BACITRACIN OINTMENT 1 PACKET TP SCH ×5 (06:00→22:38)
[2016-12-28] MEDS: SENNOSIDES/DOCUSATE SODIUM TAB PO SCH ×2 (08:56→20:53)
[2016-12-28] MEDS: ENOXAPARIN 40 MG/0.4 ML SYR SC SCH (08:57)
[2016-12-28] MEDS: morphINE SR 15 MG TAB PO SCH ×2 (08:57→20:53)
[2016-12-28] MEDS: LIDOCAINE 5% 1 EA PATCH TD SCH (09:03)
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
[2016-12-28] MEDS: traMADol 50 MG TAB PO PRN (13:33)
[2016-12-28] MEDS: POLYETHYLENE GLYCOL 3350 17 GM PKT PO SCH (15:43)
[2016-12-28] MEDS: PATCH REMOVAL 1 EA PATCH TD SCH (22:37)
[2016-12-29] MEDS: BACITRACIN OINTMENT 1 PACKET TP SCH ×5 (06:43→23:05)
[2016-12-29] MEDS: oxyCODONE IR 5 MG TAB PO PRN ×4 (06:43→18:26)
[2016-12-29] MEDS: ENOXAPARIN 40 MG/0.4 ML SYR SC SCH (09:25)
[2016-12-29] MEDS: LIDOCAINE 5% 1 EA PATCH TD SCH (09:26)
[2016-12-29] MEDS: SENNOSIDES/DOCUSATE SODIUM TAB PO SCH (09:26)
[2016-12-29] MEDS: morphINE SR 15 MG TAB PO SCH ×2 (09:26→21:56)
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
[2016-12-29] MEDS: traMADol 50 MG TAB PO PRN (15:24)
[2016-12-29] MEDS: POLYETHYLENE GLYCOL 3350 17 GM PKT PO SCH (15:32)
[2016-12-29] MEDS: PATCH REMOVAL 1 EA PATCH TD SCH (23:06)
[2016-12-30] MEDS: SENNOSIDES/DOCUSATE SODIUM TAB PO SCH ×3 (06:11→21:31)
[2016-12-30] MEDS: ENOXAPARIN 40 MG/0.4 ML SYR SC SCH (08:21)
[2016-12-30] MEDS: BACITRACIN OINTMENT 1 PACKET TP SCH ×5 (08:21→21:32)
[2016-12-30] MEDS: LIDOCAINE 5% 1 EA PATCH TD SCH (08:22)
[2016-12-30] MEDS: ACETAMINOPHEN 325 MG TAB PO PRN (08:22)
[2016-12-30] MEDS: morphINE SR 15 MG TAB PO SCH ×3 (08:22→21:31)
[2016-12-30] MEDS: oxyCODONE IR 5 MG TAB PO PRN ×4 (08:23→21:39)
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
[2016-12-30] MEDS: POLYETHYLENE GLYCOL 3350 17 GM PKT PO SCH (16:18)
[2016-12-30] MEDS: PATCH REMOVAL 1 EA PATCH TD SCH (22:32)
[2016-12-31] MEDS: oxyCODONE IR 5 MG TAB PO PRN ×4 (06:01→20:45)
[2016-12-31] MEDS: BACITRACIN OINTMENT 1 PACKET TP SCH ×5 (06:01→21:40)
[2016-12-31] MEDS: LIDOCAINE 5% 1 EA PATCH TD SCH (08:54)
[2016-12-31] MEDS: ACETAMINOPHEN 325 MG TAB PO PRN ×2 (08:55→17:53)
[2016-12-31] MEDS: RIVAROXABAN 10 MG TAB PO SCH (08:55)
[2016-12-31] MEDS: morphINE SR 15 MG TAB PO SCH ×3 (08:55→21:40)
[2016-12-31] MEDS: SENNOSIDES/DOCUSATE SODIUM TAB PO SCH ×2 (08:55→21:40)
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
[2016-12-31] MEDS: SERTRALINE HCL 25 MG TAB PO SCH (15:28)
[2016-12-31] MEDS: POLYETHYLENE GLYCOL 3350 17 GM PKT PO SCH (16:00)
[2016-12-31] MEDS: PATCH REMOVAL 1 EA PATCH TD SCH (21:43)
[2017-01-01] MEDS: BACITRACIN OINTMENT 1 PACKET TP SCH ×5 (06:24→21:30)
[2017-01-01] MEDS: oxyCODONE IR 5 MG TAB PO PRN ×4 (06:24→21:37)
[2017-01-01] MEDS: ACETAMINOPHEN 325 MG TAB PO PRN (08:01)
[2017-01-01] MEDS: morphINE SR 15 MG TAB PO SCH ×3 (08:01→21:30)
[2017-01-01] MEDS: SERTRALINE HCL 25 MG TAB PO SCH (09:25)
[2017-01-01] MEDS: SENNOSIDES/DOCUSATE SODIUM TAB PO SCH ×2 (09:25→21:30)
[2017-01-01] MEDS: LIDOCAINE 5% 1 EA PATCH TD SCH (09:25)
[2017-01-01] MEDS: RIVAROXABAN 10 MG TAB PO SCH (09:25)
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
[2017-01-01] MEDS: POLYETHYLENE GLYCOL 3350 17 GM PKT PO SCH (17:41)
[2017-01-01] MEDS: PATCH REMOVAL 1 EA PATCH TD SCH (22:12)
[2017-01-02] MEDS: oxyCODONE IR 5 MG TAB PO PRN ×3 (03:20→20:45)
[2017-01-02] MEDS: BACITRACIN OINTMENT 1 PACKET TP SCH ×5 (05:10→20:45)
[2017-01-02] MEDS: LIDOCAINE 5% 1 EA PATCH TD SCH (09:12)
[2017-01-02] MEDS: morphINE SR 15 MG TAB PO SCH ×3 (09:14→20:46)
[2017-01-02] MEDS: SERTRALINE HCL 25 MG TAB PO SCH (09:14)
[2017-01-02] MEDS: SENNOSIDES/DOCUSATE SODIUM TAB PO SCH ×2 (09:14→20:46)
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
[2017-01-02] MEDS: ACETAMINOPHEN 325 MG TAB PO PRN (11:01)
--- NOTE | 2017-01-02 13:51 | PDOREHIP ---
Admission [facility] - Admission - 3 Day Assessment Period Admission Date/Day 1: 12/25/16 Day 2: 12/26/16 Day 3: 12/27/16 Discharge [facility] - Discharge - 3 Day Assessment Period 2 Days Prior to Anticipated Discharge Date: 01/01/17 1 Day Prior to Anticipated Discharge Date: 01/02/17 Anticipated Discharge Date: 01/03/17 - Discharge Skin Conditions Unhealed Pressure Ulcer (1 or more/Stage 1 or >)-Discharge: 0. No
[2017-01-02] MEDS: POLYETHYLENE GLYCOL 3350 17 GM PKT PO SCH (17:26)
[2017-01-02] MEDS: PATCH REMOVAL 1 EA PATCH TD SCH (20:54)
[2017-01-03] MEDS: oxyCODONE IR 5 MG TAB PO PRN ×3 (02:05→12:22)
[2017-01-03] MEDS: BACITRACIN OINTMENT 1 PACKET TP SCH ×3 (05:59→15:59)
[2017-01-03 06:43] VITALS: BP 97/52; PULSE 53; RESP 15; TEMP 98.6; O2SAT 94
[2017-01-03] MEDS: SENNOSIDES/DOCUSATE SODIUM TAB PO SCH (09:30)
[2017-01-03] MEDS: ACETAMINOPHEN 325 MG TAB PO PRN (09:30)
[2017-01-03] MEDS: morphINE SR 15 MG TAB PO SCH (09:31)
[2017-01-03] MEDS: SERTRALINE HCL 25 MG TAB PO SCH (09:31)
[2017-01-03] MEDS: LIDOCAINE 5% 1 EA PATCH TD SCH (09:32)
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
== END 2017-01-03 15:48 | disposition home or self-care (01) | DRG 946 ==
LOC: BREH 12-25 15:15
PROVIDERS: ADMIT Internal Medicine; ATTEND Internal Medicine
DX: S06.89 Other specified intracranial injury (principal); S22.020D Wedge compression fracture of second thoracic vertebra, subsequent encounter for fracture with routine healing; S22.42XD Multiple fractures of ribs, left side, subsequent encounter for fracture with routine healing; S27.0XXD Traumatic pneumothorax, subsequent encounter; S32.402D Unspecified fracture of left acetabulum, subsequent encounter for fracture with routine healing; S32.89XD Fracture of other parts of pelvis, subsequent encounter for fracture with routine healing; S01.02XD Laceration with foreign body of scalp, subsequent encounter; S36.031 Moderate laceration of spleen; S36.114D Minor laceration of liver, subsequent encounter; V43.52XD Car driver injured in collision with other type car in traffic accident, subsequent encounter; Y92.411 Interstate highway as the place of occurrence of the external cause
CPT/HCPCS: 92507-GN; 92522-GN; 97110-GO; 97110-GP; 97116-GP; 97140-GO; 97162-GP; 97165-GO; 97530-GO; 97530-GP; 97532-GO; 97535-GO; J1650